=== PATIENT | male | born 1960 | race Caucasian/White ===

== ENCOUNTER 2017-02-17 14:59 | Inpatient (IN) | payer MEDICAID ==
[~2017-02-17] VITALS: Ht 172.7 cm; Wt 74.1 kg
[2017-02-17] MEDS ORDERED: RISP.5 PO (15:29)
[2017-02-17] MEDS ORDERED: SERT50TA12 PO (15:29)
[2017-02-17 15:36] LABS: BASOPHILS # (AUTO) 0.17 K/uL (0.00-0.20); BASOPHILS % (AUTO) 1.1 % (0.0-2.0); EOSINOPHILS # (AUTO) 0.13 K/uL (0.00-0.70); EOSINOPHILS % (AUTO) 0.87 % (1.0-6.0); HEMATOCRIT 44.5 % (41-53); LYMPHOCYTES % (AUTO) 34.4 % (22.0-44.0); MEAN CORPUSCULAR HEMOGLOBIN 30.5 pg (26.0-34.0); MEAN CORPUSCULAR HGB CONC 33.7 G/dL (31.0-37.0); MEAN CORPUSCULAR VOLUME 91 fL (80-100); MONOCYTES # (AUTO) 0.8 K/uL (0.1-1.0); MONOCYTES % (AUTO) 5.5 % (2.0-9.0); NEUTROPHILS # (AUTO) 8.5 K/uL (1.8-7.7); NEUTROPHILS % (AUTO) 58.1 % (40.0-70.0); PLATELET COUNT (AUTO) 254 K/uL (150-450); RED BLOOD CELL COUNT(AUTO) 4.92 MIL/uL (4.50-5.90); RED CELL DISTRIBUTION WIDTH 13.8 % (11.5-14.5); WHITE BLOOD COUNT (AUTO) 14.6 K/uL (4.5-11.0)
[2017-02-17 15:48] LABS: ANION GAP 9 mmol/L (8-16); CALCIUM, TOTAL 9.1 mg/dL (8.8-10.5); CARBON DIOXIDE 26 mmol/L (22-29); CHLORIDE 102 mmol/L (98-107); CREATININE 0.93 mg/dL (0.60-1.30); GLOMERULAR FILTR. RATE CALC > 60 mL/min (>60); POTASSIUM 4.1 mmol/L (3.5-5.1); SODIUM SERUM 137 mmol/L (136-145); UREA NITROGEN, BLOOD 9 mg/dL (7-18)
[2017-02-17 15:54] LABS: ALANINE AMINOTRANSFERASE 33 U/L (12-78); ALBUMIN 4.2 g/dL (3.4-5.0); ASPARTATE AMINOTRANSFERASE 26 U/L (15-37); BILIRUBIN,TOTAL 0.3 mg/dL (0.1-1.0); TOTAL PROTEIN, SERUM 8.3 g/dL (6.4-8.2)
[2017-02-17] MEDS ORDERED: HALOPERIDOL 5 MG TABLET PO PRN (17:00)
[2017-02-17] MEDS ORDERED: LORazepam 2 MG TABLET PO ONE (17:00)
[2017-02-17] MEDS: RisperiDONE 1 MG TABLET PO SCH (20:11)
[2017-02-18 00:05] VITALS: BP 121/72
[2017-02-18] MEDS ORDERED: INFLUENZA VIRUS VACCINE QVS 2017-18 (3YR+)/PF 60 MCG/0.5 ML SYRINGE IM ONE (02:45)
[2017-02-18] MEDS: RisperiDONE 1 MG TABLET PO SCH (08:26)
[2017-02-18] MEDS: LORazepam 2 MG TABLET PO PRN ×2 (08:27→17:03)
[2017-02-18] MEDS ORDERED: ACETAMINOPHEN 325 MG TABLET PO PRN (09:00)
[2017-02-18] MEDS ORDERED: PETROLATUM,WHITE 71 GM JELLY TP PRN (09:00)
[2017-02-18] MEDS ORDERED: SERTRALINE HCL 50 MG TABLET PO SCH (09:00)
[2017-02-18] MEDS ORDERED: LOPERAMIDE HCL 2 MG CAPSULE PO PRN (09:00)
[2017-02-18] MEDS ORDERED: BACITRACIN 28.4 GM OINTMENT TP PRN (09:00)
[2017-02-18] MEDS ORDERED: BENZOCAINE/MENTHOL LOZENGE MM PRN (09:00)
[2017-02-18] MEDS ORDERED: MAGNESIUM HYDROXIDE SUSPENSION 30 ML UDCUP PO PRN (09:00)
[2017-02-18] MEDS ORDERED: MAG HYDROX/AL HYDROX/SIMETH ES 30 ML SUSPENSION UDCUP PO PRN (09:00)
[2017-02-18] MEDS ORDERED: IBUPROFEN 600 MG TABLET PO PRN (09:00)
[2017-02-18] MEDS ORDERED: ALBUTEROL SULFATE HFA 90 MCG/PUFF 8 GM INHALER IH PRN (09:00)
[2017-02-18] MEDS ORDERED: CloNIDine HCL 0.1 MG TABLET PO PRN (09:00)
[2017-02-18] MEDS ORDERED: ONDANSETRON HCL 4 MG TABLET PO PRN (09:00)
[2017-02-18 10:21] VITALS: BP 115/74
[2017-02-18] MEDS: DOCUSATE SODIUM 100 MG CAPSULE PO SCH (11:29)
[2017-02-18] MEDS: OMEPRAZOLE 20 MG CAPSULE PO SCH (11:29)
[2017-02-18] MEDS: NICOTINE 21 MG/24 HOUR PATCH TD SCH (11:30)
[2017-02-18 16:36] VITALS: BP 104/73
[2017-02-18] MEDS: TraZODone HCL 100 MG TABLET PO SCH (20:13)
[2017-02-18] MEDS: OLANZapine 10 MG TABLET PO SCH (20:13)
[2017-02-18] MEDS: ZOLPIDEM TARTRATE 10 MG TABLET PO PRN (22:57)
[2017-02-19 06:26] VITALS: BP 112/75
[2017-02-19] MEDS: NICOTINE 21 MG/24 HOUR PATCH TD SCH (09:00)
[2017-02-19] MEDS: DOCUSATE SODIUM 100 MG CAPSULE PO SCH (09:00)
[2017-02-19] MEDS: CITALOPRAM HYDROBROMIDE 20 MG TABLET PO SCH (09:00)
[2017-02-19] MEDS: OMEPRAZOLE 20 MG CAPSULE PO SCH (09:00)
[2017-02-19] MEDS: LORazepam 2 MG TABLET PO PRN ×2 (09:01→13:05)
[2017-02-19 11:06] VITALS: BP 118/80
[2017-02-19 16:38] VITALS: BP 124/67
[2017-02-19] MEDS: OLANZapine 10 MG TABLET PO SCH (20:19)
[2017-02-19] MEDS: TraZODone HCL 100 MG TABLET PO SCH (20:19)
[2017-02-19] MEDS: ZOLPIDEM TARTRATE 10 MG TABLET PO PRN (22:37)
[2017-02-20 04:39] VITALS: BP 111/75
[2017-02-20] MEDS: LORazepam 2 MG TABLET PO PRN ×2 (04:39→12:26)
[2017-02-20] MEDS: OMEPRAZOLE 20 MG CAPSULE PO SCH (08:44)
[2017-02-20] MEDS: NICOTINE 21 MG/24 HOUR PATCH TD SCH (08:44)
[2017-02-20] MEDS: CITALOPRAM HYDROBROMIDE 20 MG TABLET PO SCH (08:45)
[2017-02-20] MEDS: DOCUSATE SODIUM 100 MG CAPSULE PO SCH (08:45)
[2017-02-20 09:47] VITALS: BP 134/71
[2017-02-20 16:15] VITALS: BP 106/68
[2017-02-20] MEDS: TraZODone HCL 100 MG TABLET PO SCH (20:12)
[2017-02-20] MEDS: OLANZapine 10 MG TABLET PO SCH (20:13)
[2017-02-20] MEDS: ZOLPIDEM TARTRATE 10 MG TABLET PO PRN (20:13)
[2017-02-21 03:27] VITALS: BP 115/61
[2017-02-21] MEDS: LORazepam 2 MG TABLET PO PRN ×3 (03:27→22:20)
[2017-02-21 07:52] LABS: BASOPHILS % (AUTO) 0.7 % (0.0-2.0); EOSINOPHILS % (AUTO) 2.7 % (1.0-6.0); HEMOGLOBIN 14.6 g/dL (13.5-17.5); LYMPHOCYTES # (AUTO) 4.7 K/uL (1.0-4.8); LYMPHOCYTES % (AUTO) 37.3 % (22.0-44.0); MEAN CORPUSCULAR HEMOGLOBIN 31.1 pg (26.0-34.0); MEAN CORPUSCULAR VOLUME 91 fL (80-100); MONOCYTES # (AUTO) 0.8 K/uL (0.1-1.0); MONOCYTES % (AUTO) 6.5 % (2.0-9.0); NEUTROPHILS # (AUTO) 6.7 K/uL (1.8-7.7); NEUTROPHILS % (AUTO) 52.8 % (40.0-70.0); PLATELET COUNT (AUTO) 252 K/uL (150-450); RED CELL DISTRIBUTION WIDTH 13.5 % (11.5-14.5); WHITE BLOOD COUNT (AUTO) 12.7 K/uL (4.5-11.0)
[2017-02-21 08:07] LABS: ANION GAP 8 mmol/L (8-16); CALCIUM, TOTAL 8.7 mg/dL (8.8-10.5); CARBON DIOXIDE 28 mmol/L (22-29); CHLORIDE 105 mmol/L (98-107); CREATININE 0.93 mg/dL (0.60-1.30); GLOMERULAR FILTR. RATE CALC > 60 mL/min (>60); POTASSIUM 4.5 mmol/L (3.5-5.1); SODIUM SERUM 141 mmol/L (136-145); UREA NITROGEN, BLOOD 10 mg/dL (7-18)
[2017-02-21 08:16] VITALS: BP 127/69
[2017-02-21] MEDS: NICOTINE 21 MG/24 HOUR PATCH TD SCH (09:28)
[2017-02-21] MEDS: OMEPRAZOLE 20 MG CAPSULE PO SCH (09:29)
[2017-02-21] MEDS: CITALOPRAM HYDROBROMIDE 20 MG TABLET PO SCH (09:29)
[2017-02-21] MEDS: DOCUSATE SODIUM 100 MG CAPSULE PO SCH (09:29)
[2017-02-21 12:08] VITALS: BP 122/70
[2017-02-21 16:38] VITALS: BP 110/81
[2017-02-21] MEDS: OLANZapine 10 MG TABLET PO SCH (20:18)
[2017-02-21] MEDS: TraZODone HCL 100 MG TABLET PO SCH (20:18)
[2017-02-21] MEDS: ZOLPIDEM TARTRATE 10 MG TABLET PO PRN (21:55)
[2017-02-22 06:56] VITALS: BP 100/67
[2017-02-22] MEDS: NICOTINE 21 MG/24 HOUR PATCH TD SCH (08:16)
[2017-02-22] MEDS: OMEPRAZOLE 20 MG CAPSULE PO SCH (08:16)
[2017-02-22] MEDS: LORazepam 2 MG TABLET PO PRN (08:16)
[2017-02-22] MEDS: CITALOPRAM HYDROBROMIDE 20 MG TABLET PO SCH (08:16)
[2017-02-22] MEDS: DOCUSATE SODIUM 100 MG CAPSULE PO SCH (08:16)
[2017-02-22 08:50] VITALS: BP 108/73
[2017-02-22] MEDS ORDERED: OMEP20 PO (11:09)
[2017-02-22] MEDS ORDERED: CITA20TA9 PO (11:09)
[2017-02-22] MEDS ORDERED: TRAZ-147 PO (11:09)
[2017-02-22] MEDS ORDERED: OLAN10TA3 PO (11:09)
== END 2017-02-22 13:00 | disposition home or self-care (01) | DRG 750 ==
LOC: EMS 15:00 → B2S 20:30
DX: F25.1 Schizoaffective disorder, depressive type (principal); R45.851 Suicidal ideations; R45.850 Homicidal ideations; J44.9 Chronic obstructive pulmonary disease, unspecified; D72.829 Elevated white blood cell count, unspecified; F17.200 Nicotine dependence, unspecified, uncomplicated; G47.00 Insomnia, unspecified; K59.00 Constipation, unspecified; Z79.899 Other long term (current) drug therapy; R45.87 Impulsiveness; Z28.21 Immunization not carried out because of patient refusal; F41.9 Anxiety disorder, unspecified; Z71.6 Tobacco abuse counseling
CPT/HCPCS: 87081; 90471; 99285; G0480

== ENCOUNTER 2017-03-02 19:08 | Emergency (ER) | payer MEDICAID ==
[~2017-03-02] VITALS: Ht 177.8 cm; Wt 86.0 kg
[~2017-03-02 19:08] MED LIST: CITA20TA9 PO; OLAN10TA3 PO; OMEP20 PO; TRAZ-147 PO
[2017-03-02 20:12] LABS: ANION GAP 6 mmol/L (8-16); CARBON DIOXIDE 29 mmol/L (22-29); CHLORIDE 100 mmol/L (98-107); CREATININE 0.82 mg/dL (0.60-1.30); GLOMERULAR FILTR. RATE CALC > 60 mL/min (>60); POTASSIUM 4.4 mmol/L (3.5-5.1); SODIUM SERUM 135 mmol/L (136-145); UREA NITROGEN, BLOOD 9 mg/dL (7-18)
[2017-03-02 20:14] LABS: BASOPHILS # (AUTO) 0.05 K/uL (0.00-0.20); BASOPHILS % (AUTO) 0.4 % (0.0-2.0); EOSINOPHILS # (AUTO) 0.29 K/uL (0.00-0.70); EOSINOPHILS % (AUTO) 2.31 % (1.0-6.0); HEMATOCRIT 42.9 % (41-53); HEMOGLOBIN 14.4 g/dL (13.5-17.5); LYMPHOCYTES # (AUTO) 4.2 K/uL (1.0-4.8); LYMPHOCYTES % (AUTO) 33.5 % (22.0-44.0); MEAN CORPUSCULAR HEMOGLOBIN 30.6 pg (26.0-34.0); MEAN CORPUSCULAR HGB CONC 33.5 G/dL (31.0-37.0); MEAN CORPUSCULAR VOLUME 92 fL (80-100); MONOCYTES # (AUTO) 0.8 K/uL (0.1-1.0); MONOCYTES % (AUTO) 5.9 % (2.0-9.0); NEUTROPHILS # (AUTO) 7.3 K/uL (1.8-7.7); NEUTROPHILS % (AUTO) 57.9 % (40.0-70.0); PLATELET COUNT (AUTO) 246 K/uL (150-450); RED BLOOD CELL COUNT(AUTO) 4.68 MIL/uL (4.50-5.90); RED CELL DISTRIBUTION WIDTH 13.4 % (11.5-14.5); WHITE BLOOD COUNT (AUTO) 12.7 K/uL (4.5-11.0)
[2017-03-02 20:23] LABS: ALANINE AMINOTRANSFERASE 26 U/L (12-78); ALBUMIN 3.7 g/dL (3.4-5.0); ASPARTATE AMINOTRANSFERASE 18 U/L (15-37); BILIRUBIN,TOTAL 0.3 mg/dL (0.1-1.0); TOTAL PROTEIN, SERUM 7.7 g/dL (6.4-8.2)
[2017-03-02 21:04] LABS: CREATINE KINASE MB 1.7 ng/mL (0-5); CREATINE KINASE, TOTAL 284 U/L (39-308)
[2017-03-02] MEDS ORDERED: ALPRAZolam 0.25 MG TABLET PO ONE ×2 (23:30→23:45)
[2017-03-02 23:47] VITALS: BP 121/83
== END 2017-03-02 23:52 | disposition home or self-care (01) ==
LOC: EMS 20:23
DX: F41.0 Panic disorder [episodic paroxysmal anxiety] (principal); R07.9 Chest pain, unspecified; F20.9 Schizophrenia, unspecified; F17.210 Nicotine dependence, cigarettes, uncomplicated
CPT/HCPCS: 36415; 71010; 80053; 80307; 82550; 82553; 84484; 85025; 93005; 99285; G0480

== ENCOUNTER 2017-03-05 20:17 | Inpatient (IN) | payer MEDICAID ==
[~2017-03-05] VITALS: Ht 175.3 cm; Wt 70.3 kg
[2017-03-05 21:07] LABS: BASOPHILS % (AUTO) 0.4 % (0.0-2.0); EOSINOPHILS % (AUTO) 2.2 % (1.0-6.0); HEMOGLOBIN 13.5 g/dL (13.5-17.5); LYMPHOCYTES # (AUTO) 4.1 K/uL (1.0-4.8); LYMPHOCYTES % (AUTO) 36.1 % (22.0-44.0); MEAN CORPUSCULAR HEMOGLOBIN 31.2 pg (26.0-34.0); MEAN CORPUSCULAR HGB CONC 33.8 G/dL (31.0-37.0); MEAN CORPUSCULAR VOLUME 92 fL (80-100); MONOCYTES # (AUTO) 0.6 K/uL (0.1-1.0); MONOCYTES % (AUTO) 5.4 % (2.0-9.0); NEUTROPHILS # (AUTO) 6.4 K/uL (1.8-7.7); NEUTROPHILS % (AUTO) 55.9 % (40.0-70.0); PLATELET COUNT (AUTO) 261 K/uL (150-450); RED BLOOD CELL COUNT(AUTO) 4.35 MIL/uL (4.50-5.90); RED CELL DISTRIBUTION WIDTH 13.5 % (11.5-14.5); WHITE BLOOD COUNT (AUTO) 11.5 K/uL (4.5-11.0)
[2017-03-05 21:19] LABS: ANION GAP 8 mmol/L (8-16); CALCIUM, TOTAL 8.7 mg/dL (8.8-10.5); CARBON DIOXIDE 29 mmol/L (22-29); CHLORIDE 99 mmol/L (98-107); CREATININE 0.89 mg/dL (0.60-1.30); GLOMERULAR FILTR. RATE CALC > 60 mL/min (>60); POTASSIUM 3.4 mmol/L (3.5-5.1); SODIUM SERUM 136 mmol/L (136-145); UREA NITROGEN, BLOOD 9 mg/dL (7-18)
[2017-03-05] MEDS ORDERED: POTASSIUM CHLORIDE 10% 40 MEQ/30 ML LIQUID UDCUP PO ONE (21:30)
[2017-03-05 21:34] LABS: ALANINE AMINOTRANSFERASE 25 U/L (12-78); ALBUMIN 3.5 g/dL (3.4-5.0); ASPARTATE AMINOTRANSFERASE 14 U/L (15-37); BILIRUBIN,TOTAL 0.3 mg/dL (0.1-1.0); TOTAL PROTEIN, SERUM 6.8 g/dL (6.4-8.2)
[2017-03-05] MEDS ORDERED: LORazepam 2 MG TABLET PO PRN (21:45)
[2017-03-05 21:50] LABS: ACETAMINOPHEN < 2 mcg/mL (10-30)
[2017-03-05 21:51] LABS: APPEARANCE,URINE CLOUDY (CLEAR); GLUCOSE, URINE (UA) NEGATIVE (NEGATIVE); KETONES,URINE NEGATIVE (NEGATIVE); LEUKOCYTE ESTERASE ,URINE NEGATIVE (NEGATIVE); OCCULT BLOOD,URINE NEGATIVE (NEGATIVE); PH,URINE 7.5 (5.0-8.0); PROTEIN,URINE NEGATIVE (NEGATIVE)
[2017-03-05 22:08] LABS: SALICYLATE 3.8 mg/dL (2.8-20.0)
[2017-03-05 22:15] LABS: COARSE GRANULAR CASTS,URINE 0-2 /LPF (None Seen); SQUAMOUS EPITHELIAL CELL,UR Rare /LPF (None Seen)
[2017-03-05 22:16] LABS: RBC,URINE 0-2 /HPF (0-2); WBC,URINE 0-2 /HPF (0-5)
[2017-03-05] MEDS ORDERED: ACETAMINOPHEN 500 MG TABLET PO ONE (22:30)
[2017-03-05] MEDS ORDERED: ALPRAZolam 0.25 MG TABLET PO ONE (22:30)
[2017-03-06 01:15] VITALS: BP 112/75
[2017-03-06] MEDS: HALOPERIDOL 5 MG TABLET PO PRN ×3 (01:23→17:30)
[2017-03-06] MEDS: ZOLPIDEM TARTRATE 10 MG TABLET PO PRN (01:23)
[2017-03-06] MEDS ORDERED: INFLUENZA VIRUS VACCINE QVS 2017-18 (3YR+)/PF 60 MCG/0.5 ML SYRINGE IM ONE (01:30)
[2017-03-06] MEDS ORDERED: ACETAMINOPHEN 325 MG TABLET PO PRN (06:15)
[2017-03-06] MEDS ORDERED: IBUPROFEN 400 MG TABLET PO PRN (06:15)
[2017-03-06 08:08] LABS: CHOL/HDL RATIO 5.8 (4.2-7.3); POTASSIUM 4.6 mmol/L (3.5-5.1); THYROID STIMULATING HORMONE 2.34 uIU/mL (0.36-3.74)
[2017-03-06] MEDS: OMEPRAZOLE 20 MG CAPSULE PO SCH (08:24)
[2017-03-06] MEDS: NICOTINE 21 MG/24 HOUR PATCH TD SCH (08:25)
[2017-03-06 08:31] VITALS: BP 121/78
[2017-03-06 16:00] VITALS: BP 130/76
[2017-03-06 17:30] VITALS: BP 122/76
[2017-03-06] MEDS ORDERED: DiphenhydrAMINE HCL 50 MG/ML VIAL IM ONE (18:00)
[2017-03-06] MEDS ORDERED: LORazepam 2 MG/ML VIAL ONE (18:51)
[2017-03-06] MEDS ORDERED: HALOPERIDOL LACTATE 5 MG/ML VIAL ONE (18:51)
[2017-03-06] MEDS ORDERED: LORazepam 2 MG/ML VIAL IM ONE (19:00)
[2017-03-06] MEDS ORDERED: HALOPERIDOL LACTATE 5 MG/ML VIAL IM ONE (19:00)
[2017-03-06] MEDS: OLANZapine 7.5 MG TABLET PO SCH (20:33)
[2017-03-06] MEDS: TraZODone HCL 100 MG TABLET PO SCH (20:33)
[2017-03-07] MEDS: HALOPERIDOL 5 MG TABLET PO PRN ×4 (04:47→18:21)
[2017-03-07 06:20] VITALS: BP 104/69
[2017-03-07 08:07] VITALS: BP 111/67
[2017-03-07] MEDS: CITALOPRAM HYDROBROMIDE 20 MG TABLET PO SCH (08:17)
[2017-03-07] MEDS: NICOTINE 21 MG/24 HOUR PATCH TD SCH (08:17)
[2017-03-07] MEDS: OMEPRAZOLE 20 MG CAPSULE PO SCH (08:17)
[2017-03-07] MEDS: DIVALPROEX SODIUM 500 MG DR TABLET PO SCH ×2 (08:17→16:12)
[2017-03-07] MEDS ORDERED: LORazepam 0.5 MG TABLET PO PRN (09:15)
[2017-03-07] MEDS: LORazepam 1 MG TABLET PO PRN ×3 (09:31→18:21)
[2017-03-07 16:14] VITALS: BP 121/78
[2017-03-07] MEDS: OLANZapine 7.5 MG TABLET PO SCH (20:44)
[2017-03-07] MEDS: TraZODone HCL 100 MG TABLET PO SCH (20:44)
[2017-03-08 06:26] VITALS: BP 113/71
[2017-03-08 08:24] VITALS: BP 118/69
[2017-03-08] MEDS: LORazepam 1 MG TABLET PO PRN ×3 (08:27→16:50)
[2017-03-08] MEDS: NICOTINE 21 MG/24 HOUR PATCH TD SCH (08:27)
[2017-03-08] MEDS: DIVALPROEX SODIUM 500 MG DR TABLET PO SCH ×2 (08:27→16:49)
[2017-03-08] MEDS: CITALOPRAM HYDROBROMIDE 20 MG TABLET PO SCH (08:27)
[2017-03-08] MEDS: OMEPRAZOLE 20 MG CAPSULE PO SCH (08:27)
[2017-03-08] MEDS: HALOPERIDOL 5 MG TABLET PO PRN ×3 (08:29→16:50)
[2017-03-08 16:00] VITALS: BP 108/68
[2017-03-08] MEDS ORDERED: DOCUSATE SODIUM 100 MG CAPSULE PO PRN (17:00)
[2017-03-08] MEDS ORDERED: ALBUTEROL SULFATE HFA 90 MCG/PUFF 8 GM INHALER IH PRN (17:00)
[2017-03-08] MEDS: OLANZapine 7.5 MG TABLET PO SCH (20:31)
[2017-03-08] MEDS: TraZODone HCL 100 MG TABLET PO SCH (20:31)
[2017-03-09 06:46] VITALS: BP 125/72
[2017-03-09] MEDS: DIVALPROEX SODIUM 500 MG DR TABLET PO SCH ×2 (08:13→16:06)
[2017-03-09] MEDS: CITALOPRAM HYDROBROMIDE 20 MG TABLET PO SCH (08:13)
[2017-03-09] MEDS: NICOTINE 21 MG/24 HOUR PATCH TD SCH (08:13)
[2017-03-09] MEDS: OMEPRAZOLE 20 MG CAPSULE PO SCH (08:13)
[2017-03-09] MEDS: LORazepam 1 MG TABLET PO PRN ×3 (08:13→17:06)
[2017-03-09 08:16] VITALS: BP 116/69
[2017-03-09] MEDS: HALOPERIDOL 5 MG TABLET PO PRN ×2 (10:42→17:06)
[2017-03-09 16:26] VITALS: BP 132/77
[2017-03-09] MEDS: OLANZapine 7.5 MG TABLET PO SCH (20:21)
[2017-03-09] MEDS: ZOLPIDEM TARTRATE 10 MG TABLET PO PRN (20:21)
[2017-03-09] MEDS: TraZODone HCL 100 MG TABLET PO SCH (20:21)
[2017-03-10 06:27] VITALS: BP 109/77
[2017-03-10] MEDS: CITALOPRAM HYDROBROMIDE 20 MG TABLET PO SCH (08:12)
[2017-03-10] MEDS: HALOPERIDOL 5 MG TABLET PO PRN ×2 (08:12→12:25)
[2017-03-10] MEDS: OMEPRAZOLE 20 MG CAPSULE PO SCH (08:13)
[2017-03-10] MEDS: LORazepam 1 MG TABLET PO PRN ×2 (08:13→12:25)
[2017-03-10] MEDS: NICOTINE 21 MG/24 HOUR PATCH TD SCH (08:13)
[2017-03-10] MEDS: DIVALPROEX SODIUM 500 MG DR TABLET PO SCH (08:13)
[2017-03-10 08:14] VITALS: BP 108/69
[2017-03-10] MEDS ORDERED: OLAN7.5T2 PO (09:55)
[2017-03-10] MEDS ORDERED: DIVA500T35 PO (09:55)
== END 2017-03-10 14:20 | disposition home or self-care (01) | DRG 754 ==
LOC: EMS 20:18 → B3A 22:27
PROVIDERS: ADMIT Psychiatry & Neurology Psychiatry; ATTEND Psychiatry & Neurology Psychiatry
DX: F32.9 Major depressive disorder, single episode, unspecified (principal); R45.851 Suicidal ideations; F20.9 Schizophrenia, unspecified; F17.210 Nicotine dependence, cigarettes, uncomplicated; E87.6 Hypokalemia; F41.9 Anxiety disorder, unspecified; J44.9 Chronic obstructive pulmonary disease, unspecified; K59.00 Constipation, unspecified; G47.00 Insomnia, unspecified; T45.0X2A Poisoning by antiallergic and antiemetic drugs, intentional self-harm, initial encounter; Y92.89 Other specified places as the place of occurrence of the external cause; Y93.89 Activity, other specified; Y99.8 Other external cause status; Z71.6 Tobacco abuse counseling; Z56.0 Unemployment, unspecified; Z79.899 Other long term (current) drug therapy
CPT/HCPCS: 83036; 84132; 84439; 84443; 87081; 90471; 93005; 99285; G0480; G0481; J1200; J1630; J2060